=== PATIENT | female | born 1980 | race Two or more races ===

== ENCOUNTER 2023-11-30 04:57 | Emergency (ER) | payer MEDICAID, OTHER ==
[~2023-11-30] VITALS: Ht 165.1 cm; Wt 79.3 kg
[2023-11-30 05:08] VITALS: BP 132/76; PULSE 83; RESP 20; O2SAT 97
[2023-11-30] MEDS: IBUPROFEN 800 MG TAB PO ONE (05:58)
== END 2023-11-30 06:32 | disposition left against medical advice (07) ==
LOC: ER 04:57
DX: R10.2 Pelvic and perineal pain (principal); Z98.891 History of uterine scar from previous surgery; Z53.21 Procedure and treatment not carried out due to patient leaving prior to being seen by health care provider